=== PATIENT | female | born 1970 ===

== ENCOUNTER 2025-10-27 14:39 | Outpatient (AMB) | payer OTHER, SELFPAY ==
--- OUTSIDE RECORDS SUMMARY | 2025-10-22 23:59 | XMS_ITS | Continuity of Care Document ---
Author Organization [facility] Address [address] [place] [address]- Care Team Providers Care Information Services Manager Name Role Phone Davion Shay MD Primary Care Physic bismark [id number] Date(s): 10/15/25 - 10/22/25 [facility] [address] [place], [place] [address] Encounter Diagnosis Moderate persistent asthma with exacerbation(Discharge Diagnosis) - 10/15/25 Cigar smoker(Discharge Diagnosis) - 10/15/25 Hypertension(Discharge Diagnosis) - 10/15/25 Attending Physician: Yolanda Frank MD Encounter Type: Office Visit Allergies, Adverse Reactions, Alerts Substance Criticality Severity Reaction Reaction Severity Status Dust Active Strawberries itchy throat Acti ve Functional Status Functional Status Assessment Assessment Assessment Component Result Effecti ve Date Disability status [CUBS] I'm Thriving - no identified disability 10/15/25 Because of a physica l, mental, or emotional condition, do you have difficulty doing errands alone such as visiting a physician's office or shopping No 10/15/25 Do you have difficul ty dressing or bathing No 10/15/25 Do you have serious difficulty walking or climbing stairs No 10/15/25 Because of a physica l, mental, or emotional condition, do you have serious difficulty concentrating, remembering, or making decisions No 10/15/25 Are you blind, or do you have serious difficulty seeing, even when wearing glasses No 10/15/25 Are you deaf, or do you have serious difficulty hearing No 10/15/25 Do you need any juani tional assistance or accommodations during your visit No 10/15/25 Difficulty Reading O r Writing No 10/15/25 Difficulty communica ting in usual language No 10/15/25 Immunizations Given and Recorded Vaccine Date Status Refusal Reason influenza virus vaccine, inactivated 09/16/25 Corbin rded influenza virus vaccine, inactivated 09/17/24 Corbin rded influenza virus vaccine, inactivated 09/12/23 Corbin rded SARS-CoV-2 mRNA ([id number]) vax 01/29/22 Recorded SARS-CoV-2 (COVID-19) mRNA BNT-162b2 vac 07/31/21 Recorded SARS-CoV-2 (COVID-19) mRNA BNT-162b2 vac 07/10/21 Recorded pneumococcal 23-valent vaccine 1 02/11/18 Given tetanus/diphtheria/pertussis, acel(Tdap) 2 07/11/16 Given 1Result Comment: [02/11/2018] [facility]# [id number] pt. toelrated inj. without complications...CO 2Result Comment: [07/11/2016] given w/out incident Medications Albuterol (Eqv-ProAir HFA) 90 mcg/inh inhalation aerosol 2 inhalation = 180 mcg, Inhalation, Every 4 hours, PRN as needed for shortness of breath or wheezing, # 18 Gm, 3 Refills, Maintenance, 10/15/25 4:53:00 PM EST, Aerosol, [id number], Partial fill upon patient request if the prescription is for a schedule II opioid drug., 2 inhalation Inhalation Every 4 hours,x30 days,PRN:as needed for shortness of breath or wheezing, 159.3, cm, 10/15/25 16:21:00 EST, Height, 71.6, kg, 10/15/25 16:13:00 EST, Dry Weight Start Date: 10/15/25 Stop Date: 02/12/26 Status: Ordered Medication Dispense Status: Completed Quantity: 18.0 Unit: g Total Allowed Fills: 4 Fills Dispensed: 0 albuterol 0.083% inhalation solution 3 mL = 2.5 mg, Neb, Every 6 hours, PRN as needed for wheezing, # 360 mL, 0 Refills, Maintenance, 09/25/22 2:43:00 PM EST, Solution, [id number], 160, cm, 11/09/21 15:51:00 EST, Height Start Date: 09/25/22 Status: Ordered Medication Dispense Status: Completed Quantity: 360.0 Unit: mL Total Allowed Fills: 1 Fills Dispensed: 0 amLODIPine 10 mg oral tablet 1 tablet = 10 mg, By Mouth, Daily, # 90 tablet, 1 Refills, Maintenance, 10/05/25 6:37:00 AM EST, [facility] #[id number], Partial fill upon patient request if the prescription is for a schedule II opioid drug., 159.3, cm, 01/21/25 9:57:00 EST, Height, 64, kg, 06/15/24 13:40:00 EDT, Dry Weight Start Date: 10/05/25 Status: Ordered Medication Dispense Status: Completed Quantity: 90.0 Unit: tablet Total Allowed Fills: 2 Fills Dispensed: 0 budesonide-formoterol 160 mcg-4.5 mcg/inh inhalation aerosol with adapter 2, inhalation, Inhalation, 2 times a day, in the morning and the evening, # 10.2 Gm, Refills 1, Tot. Refills 1, Maintenance, 10/15/25 4:55:00 PM EST, Aerosol, Route to Pharmacy Electronically, [id number], [facility] #[id number], generic symbicort/ breyna is OK. since Dulera isnot covered, 159.3, cm, 10/15/25 16:21:00 EST, Height, 71.6, kg, 10/15/25 16:13:00 EST, Dry Weight Start Date: 10/15/25 Stop Date: 12/14/25 Status: Ordered Medication Dispense Status: Completed Quantity: 10.2 Unit: g Total Allowed Fills: 2 Fills Dispensed: 0 Dulera 100 mcg-5 mcg/inh inhalation aerosol 2 puffs, Inhalation, 2 times a day, # 13 Gm, 5 Refills, Maintenance, 10/05/25 6:36:00 AM EST, Aerosol, [facility]/pharmacy #[id number], 2 puffs Inhalation 2 times a day, 159.3, cm, 01/21/25 9:57:00 EST, Height, 64, kg, 06/15/24 13:40:00 EDT, Dry Weight Start Date: 10/05/25 Status: Ordered Medication Dispense Status: Completed Quantity: 13.0 Unit: g Total Allowed Fills: 6 Fills Dispensed: 0 Lidoderm 5% film 1 patch, Topically, Daily, PRN Pain , Moderate, remove patches after 12 hours, # 30 patch, 3 Refills, Maintenance, 06/15/24 2:13:00 PM EDT, Film, [facility]/pharmacy #[id number], Partial fill upon patient request if the prescription is for a schedule II opioid drug., 1 patch Topically Daily,PRN:Pain , Moderate,Instr:remove patches after 12 hours, 159, cm, 06/15/24 13:40:00 EDT, Height, 64, kg, 06/15/24 13:40:00 EDT, Dry Weight Start Date: 06/15/24 Status: Ordered Medication Dispense Status: Completed Quantity: 30.0 Unit: patch Total Allowed Fills: 4 Fills Dispensed: 0 Nebulizer/Compressor See Instructions, # 1 Unknown, Maintenance, dx: j45.909 asthma use four times per day with albuterol nebulizer solution, 02/15/20 10:29:00 AM EDT, Compound Start Date: 02/15/20 Status: Ordered Medication Dispense Status: Completed Quantity: 1.0 Unit: Unknown Total Allowed Fills: 1 Fills Dispensed: 0 PARoxetine 20 mg oral tablet 30 mg, 1.5, tablet, By Mouth, Daily, # 135 tablet, Refills 1, Tot. Refills 1, Maintenance, 256:41:00 AM EST, Route to Pharmacy Electronically, [facility]/pharmacy #[id number], 159.3, cm, 01/21/25 9:57:00 EST, Height, 64, kg, 06/15/24 13:40:00 EDT, Dry Weight Start Date: 10/05/25 Status: Ordered Medication Dispense Status: Completed Quantity: 135.0 Unit: tablet Total Allowed Fills: 2 Fills Dispensed: 0 predniSONE 10 mg oral tablet See Instructions, 4 tab x2 days, 3 tab x 2 days, 2 tab x 2 days, 1tab x 2 days, # 20 tablet, 0 Refills, Acute 10/23/25 4:54:00 PM EST, 10/15/25 4:54:00 PM EST, [id number], Partial fill upon patient request if the prescription is for a schedule II opioid drug., 159.3, cm, 10/15/25 16:21:00 EST, Height, 71.6, kg, 10/15/25 16:13:00 EST, Dry Weight Start Date: 10/15/25 Stop Date: 10/23/25 Status: Ordered Medication Dispense Status: Completed Quantity: 20.0 Unit: tablet Total Allowed Fills: 1 Fills Dispensed: 0 Tylenol 8 HR Arthritis Pain 650 mg oral tablet, extended release 2 tablet = 1,300 mg, By Mouth, 3 times a day, PRN Pain , Moderate, # 100 tablet, 3 Refills, Acute 02/19/26 1:50:00 PM EDT, 12/30/24 1:49:00 PM EST, ER Tablet, [id number], Partial fill upon patient request if the prescription is for a schedule II opioid drug., 159.3, cm, 12/30/24 13:06:00 EST, Height, 64, kg, 06/15/24 13:40:00 EDT, Dry Weight Start Date: 12/30/24 Stop Date: 02/19/26 Status: Ordered Medication Dispense Status: Completed Quantity: 100.0 Unit: tablet Total Allowed Fills: 4 Fills Dispensed: 0 Vitamin B12 1000 mcg oral tablet 1 tablet = 1,000 mcg, By Mouth, Daily, # 90 tablet, 1 Refills, Maintenance, 10/05/25 6:39:00 AM EST, Tablet, [id number], Partial fill upon patient request if the prescription is for a schedule II opioid drug., 159.3, cm, 01/21/25 9:57:00 EST, Height, 64, kg, 06/15/24 13:40:00 EDT, Dry Weight Start Date: 10/05/25 Status: Ordered Medication Dispense Status: Completed Quantity: 90.0 Unit: tablet Total Allowed Fills: 2 Fills Dispensed: 0 Mental Status Mental Status Assessment Assessment Assessment Component Result Effecti ve Date Patient Health Questionnaire 2 item (PHQ-2) total score [Reported] 2 10/15/25 Problem List Condition Confirmation Course Effective Dates Status H ealth Status Informant Asthma Confirmed Active Hot flashes Confirmed Active Left hip pain Confirmed Active Hypertension Confirmed Active Lower back pain Confirmed Active Osteoarthritis of left hip Confirmed Active Gluteal pain Confirmed Active Routine medical exam Confirmed Active Diagnosis Diagnosis Type Effective Dates Health Status Clinical Service Informant Moderate persistent asthma with exacerbation Discharge Diagnosis 10/15/25 Cigar smoker Discharge Diagnosis 10/15/25 Hypertension Discharge Diagnosis 10/15/25 Vital Signs Most recent to oldest [Reference Range]: 1 2 Height 159.3 cm (10/15/25 4:21 PM) 159.3 cm (10/15/25 4:13 PM) Weight 71.6 kg (10/15/25 4:13 PM) Oxygen Saturation [94-100 %] 100 % (10/15/25 4:13 PM) Pulse Rate [55-90 bpm] 74 bpm (10/15/25 4:13 PM) Body Mass Index [18.5-24.99 kg/m2] 28.22 kg/m2 *H* (10/15/25 4:13 PM) Blood Pressure [90-138/55-84 mm Hg] 150/ 96mm Hg *H* (10/15/25 4:21 PM) 154/87mm Hg *H* (10/15/25 4:13 PM) Mode of Delivery (Oxygen) Room air (10/15/25 4:13 PM) Blood pressure sites Arm, left (10/15/25 4:21 PM) Arm, left (10/15/25 4:13 PM) Dry Weight 71.6 kg (10/15/25 4:13 PM) Weight Obtained Via Standing scale (10/15/25 4:13 PM) Dry Weight Obtained Via Standing scale (10/15/25 4:13 PM) Social History Social History Type Response Smoking Status Former smoker; Tobac co use times per day: occasional cigar, previously smoked about 1 pack per day for about about 10 years; entered on: 07/11/16 Sexual Orientation Self described orien tation: ; Straight or heterosexual Sex Sex Representation Female (finding) Patient Care team information Care Team Personnel Name: Sveta Brush MD, Davion Foley Position: [facility] Physician - Primary Care Member Role: PCP Address: [address] [place] [address] Telecom: Care Team Related Persons Name: SAUMYA YUEN Insurance Providers Guarantor name: SILVANO CASANOVA [facility] Plan Information #: 1 Payer: [facility] POS Payer Identifier: NA Member Number: [id number] Group Number: [id number] Subscriber Identifier: [id number] Relationship to Subscriber: spouse Coverage Type: Managed Care (Private) Coverage Verification Date: NA Telecom: NA Address: NA
--- NOTE | 2025-10-27 14:40 | MHC.PC.OV ---
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: No Accompanied by: Self / Same As Patient Allergies house dust Allergy (Intermediate, Verified 10/27/25 14:47) congestion/sneezing/coughing strawberry Allergy (Intermediate, Verified 10/27/25 14:47) itchy throat Medication List - Last Reconciled 10/27/25 by Nicole Bird MD acetaminophen ER 1,300 mg PO TID PRN albuterol sulfate 2.5 mg inhalation Q4-6H PRN albuterol sulfate 90 mcg/actuation 2 puffs inhalation Q4H PRN amlodipine 10 mg PO DAILY budesonide-formoterol 160-4.5 mcg/actuation 2 puffs inhalation BID PRN cyanocobalamin (vitamin B-12) 1,000 mcg PO DAILY lidocaine 5% 1 appl topical TID lidocaine 5% 1 patch topical DAILY PRN paroxetine HCl 20 mg PO DAILY Tobacco use date assessed: 10/27/25 Dental Screening Dental Screen Date: 10/27/25 Did you have a dental visit in the last 12 months?: Yes Did you have a dental problem in the last 6 months where you did not have access to dental care?: No Was dental information given to patient?: Patient has dentist HPI HPI Comments History of Present Illness Details The patient is a 55 year old female presenting to reestablish care and for management of chronic conditions. Asthma: She has a history of asthma and recently experienced an issue with her maintenance medication. Her insurance stopped covering Dulera, which she discovered when she tried to get a refill around gi. She was without her maintenance inhaler for about a week, which led to breathing difficulties. She required an emergency provider visit on Saturday, the , and was prescribed an 8-day course of prednisone, which she completed on Saturday. She was switched to budesonide-formoterol , which she takes as two puffs twice daily Tobacco use - Patient has a history of tobacco use, about 2 packs per year for 10 years. Also has family history of lung cancer. Menopausal hot flashes: She is taking paroxetine 30 mg for hot flashes. She reports the medication is helping, and she has been sleeping through the night this week, but experienced night sweats and was woken up by them a couple of times last week. [facility] Medical History (Updated 10/27/25 @ 17:19 by Nicole Bird MD) B12 deficiency Hot flashes Osteoarthritis of right hip Unspecified asthma Primary hypertension Surgical History (Updated 10/27/25 @ 14:54 by Nicole Bird MD) H/O tubal ligation History of colonoscopy (~08/12/23) Social History Housing: Apartment Patient Tobacco Use Status: Current someday Tobacco user Tobacco use type: Cigar e-Cigarette/Vaping Use: Never Used service: No Current occupational status: employed Current occupation: admin coordinator at [employer] Questionnaire PHQ-9 Over the last 2 weeks, how often have you been bothered by any of the following problems? 1. Little interest or pleasure in doing things: several days 2. Feeling down, depressed, or hopeless: not at all 3. Trouble falling or staying asleep, or sleeping too much: not at all 4. Feeling tired or having little energy: not at all 5. Poor appetite or overeating: several days 6. Feeling bad about yourself - or that you are a failure or have let yourself or your family down: not at all 7. Trouble concentrating on things, such as reading the newspaper or watching television: not at all 8. Moving or speaking so slowly that other people could have noticed. Or the opposite - being so fidgety or restless that you have been moving around a lot more than usual: not at all 9. Thoughts that you would be better off or of hurting yourself in some way: not at all Total score: 2 Depression Screening Interpretation: Positive Depression Screening Done: Yes Source: Developed by Drs. Alireza Marroquin, Deirdre Fang, Peyman Ely and colleagues, with an educational laverne from [employer]. Thrive Questionnaire Date Thrive assessed: 10/27/25 I am a: Patient What is your living situation today?: I have a steady place to live Within the past 12 months, did the food you bought not last and you didn't have the money to get more?: Never true Within the past 12 months, did you worry whether your food would run out before you got money to buy more?: Never true Do you have trouble paying for medicines?: No Do you have trouble getting transportation to medical appointments?: No Do you have trouble paying your heating and electricity bill?: No Do you have trouble taking care of your child, family member or friend?: No Do you have trouble with day-to-day activities such as bathing, preparing meals, shopping, managing finances, etc.?: No Are you currently unemployed and looking for a job?: No Are you interested in more education?: No Please select the resources that you would like help with: None THRIVE Score: 0 AUDIT C Alcohol Use Questionnaire (AUDIT-C) 1. How often do you have a drink containing alcohol?: Monthly or less 2. How many drinks containing alcohol do you have on a typical day when you are drinking?: 1 or 2 3. How often do you have six or more drinks on one occasion?: Never Total Score: 1 KAILEY-7 AMB Questionnaire KAILEY-7 Date KAILEY - 7 assessed: 10/27/25 Feeling nervous, anxious, or on edge: 2 = More than half the days Not being able to stop or control worryin = Not at all Worrying too much about different things: 2 = More than half the days Trouble relaxin = Not at all Being so restless that it is hard to sit still: 0 = Not at all Becoming easily annoyed or irritable: 2 = More than half the days Feeling afraid as if something awful might happen: 0 = Not at all Total KAILEY-7 score (0-4 normal; 5-9 mild; 10-14 moderate; 15-21 severe): 6 Source: Developed by Drs. Alireza Marroquin, Deirdre Fang, Peyman Ely and colleagues, with an educational laverne from [employer]. Review of Systems Narrative Review of Systems - General: Reports occasional night sweats. - Respiratory: Reports having difficulty breathing about a week ago when she was without her maintenance inhaler. She is currently coughing up clear phlegm. Physical exam (Primary Care) Vital Signs: Last Vital Signs Temp 97.3 F 10/27/25 14:43 Pulse 80 10/27/25 14:43 Resp 16 10/27/25 14:43 BP 130/70 10/27/25 14:43 BMI result Body Mass Index 27.3 Tobacco/Smoking Status: Tobacco use Status Tobacco use date assessed 10/27/25 10/27/25 14:41 Patient Tobacco Use Status Current someday Tobacco 10/27/25 14:55 Tobacco use type Cigar 10/27/25 14:55 e-Cigarette/Vaping Use Never Used 10/27/25 14:55 PHQ-9: PHQ-9 Score PHQ-9: Total score 2 10/27/25 15:52 Depression Screening Interpretation: Positive Thrive Assessment: Date of Thrive Assessment Date Thrive assessed 10/27/25 10/27/25 15:52 Narrative Physical Exam - Vital Signs: Blood pressure is stable. - HEENT: Right ear is clear. Oropharynx is without redness. - Cardiovascular: Regular rate and rhythm. - Lungs: Auscultation reveals coarse breath sounds bilaterally, poor inspiratory effort Coding Level of Care Code Est Pt Level 4 (07312) Add On Problem Visit Only Diagnoses Primary hypertension I10 Hot flashes R23.2 Moderate persistent asthma with acute exacerbation J45.41 Asthma severity: moderate Asthma persistence: persistent Asthma complication type: with acute exacerbation Assessment & Plan Assessment & Plan (1) Primary hypertension: Code(s): I10 - Essential (primary) hypertension Category: Medical (2) Hot flashes: Code(s): R23.2 - [place] Category: Medical (3) Unspecified asthma: Code(s): J45.909 - Unspecified asthma, uncomplicated Category: Medical Qualifiers: Asthma severity: moderate Asthma persistence: persistent Asthma complication type: with acute exacerbation Qualified Code(s): J45.41 - Moderate persistent asthma with (acute) exacerbation Plan Assessment and Plan 1. Asthma - The patient presenting after a recent flare due to a lapse in her maintenance medication. -asthma exacerbation - The plan is to extend her steroid taper with a course of prednisone 30mg for 3 days, 20mg for 3 days, and 10mg for 3 days. - Also advised to use albuterol inhaler, two puffs every six hours for the next seven days, to be used with her regular maintenance inhaler. - A prescription for a nebulizer machine will be sent, as her previous one is lost. 2. Menopausal hot flashes - The patient reports some breakthrough symptoms despite taking paroxetine 30 mg. We will continue the current dose for now and monitor. - The dosage can be increased if breakthrough symptoms persist. 3. Hypertension - Her blood pressure is stable. - Current medication 4. Health Maintenance - The patient will schedule her annual physical for December. - Lab orders will be placed for her to complete before the visit. - She was reminded to schedule her mammogram and gynecology appointments. Plan - Will extend the prednisone taper for the asthmaexacerbation: the patient will take 30 mg for 3 days, 20 mg for 3 days, and 10 mg for 3 days. - The patient is to use her albuterol inhaler, two puffs every six hours for the next 7 days, in addition to her maintenance inhaler. - A prescription for a replacement nebulizer machine [facility] be [facility] to [facility] - Continue paroxetine 30 mg for hot flashes and will monitor its effectiveness. - The patient will continue her current medications, including amlodipine and paroxetine - Lab orders will be placed for the patient to complete before her December physical. - The patient was provided with cleaning manager referral information and reminded to schedule her appointment and mammogram. - Will refer for low dose CT scan Patient Instructions - You will continue taking prednisone with an extended tapering dose: take 30 mg for 3 days, then 20 mg for 3 days, and finally 10 mg for 3 days. Remember to take it with food. - For the next 7 days, use your albuterol inhaler by taking two puffs every six hours to help open your airways. - Continue taking paroxetine 30 mg for your hot flashes. We will check on how it's working at your next visit. - A prescription for a new nebulizer machine will be sent Orders: Orders Complete Blood Count Auto Diff Today I10 - Essential (primary) hypertension, R23.2 - [place] Comprehensive Met. Panel Today I10 - Essential (primary) hypertension, R23.2 - [place] Vitamin B12 Today E53.8 - Deficiency of other specified B group vitamins Lipid Panel Today I10 - Essential (primary) hypertension, R23.2 - [place] TSH reflex Free T4 Today I10 - Essential (primary) hypertension, R23.2 - [place] Microalbumin, Random (w Creat) Today I10 - Essential (primary) hypertension Medications: New prednisone take 3 tabs by mouth x 3 days then take 2 tabs x 3 days then 1 tab x 3 days 18 tabs 0RF [nebulizer] As directed 1 ea 11RF J45.909 - Unspecified asthma, uncomplicated
[2025-10-27 14:43] VITALS: BP 130/70; PULSE 80; RESP 16; TEMP 36.3; BMI 27.3
== END 2025-10-27 15:46 | disposition home or self-care (01) ==
LOC: HO.HMCHD 14:39
PROVIDERS: PCP Internal Medicine; Visit Provider Internal Medicine
DX: I10 Essential (primary) hypertension (principal); R23.2 Flushing; J45.41 Moderate persistent asthma with (acute) exacerbation